=== PATIENT | male | born 1960 | race Caucasian/White ===

== ENCOUNTER 2017-07-02 14:58 | Emergency (ER) | payer MEDICAID, OTHER ==
[~2017-07-02] VITALS: Ht 167.6 cm; Wt 74.7 kg
[2017-07-02 15:25] VITALS: BP 145/105
[2017-07-02] MEDS ORDERED: FOLI0.4T2 PO (15:38)
[2017-07-02] MEDS ORDERED: THI100T PO (15:38)
[2017-07-02] MEDS ORDERED: LORA-269 PO (15:38)
== END 2017-07-02 16:05 | disposition home or self-care (01) ==
LOC: ER 14:59
DX: F10.10 Alcohol abuse, uncomplicated (principal); Y90.9 Presence of alcohol in blood, level not specified
CPT/HCPCS: 99283